=== PATIENT | female | born 1975 | race Caucasian/White ===

== ENCOUNTER 2020-03-14 05:40 | Day surgery (SDC) | payer OTHER, SELFPAY ==
[~2020-03-14] VITALS: Ht 160 cm; Wt 102.5 kg
[~2020-03-14 05:40] MED LIST: CEFAZOLIN SOD 2 GM in D5W 50 ML IV ONE
[2020-03-14] MEDS ORDERED: BUPIVACAINE /PF 0.25% 30 ML VIAL INJ ONE (08:20)
[2020-03-14] MEDS ORDERED: ROCURONIUM BROMIDE 10 MG/ML (ZEMURON) IV ONE (08:20)
[2020-03-14] MEDS ORDERED: NS IRRIG SOLN 1000 ML IR ONE (08:20)
[2020-03-14] MEDS ORDERED: SUCCINYLCHOLINE CHLORIDE 20 MG/ML(QUELICIN) IVP ONE (08:20)
[2020-03-14] MEDS ORDERED: fentaNYL CITRATE 250 MCG/5 ML AMP IV ONE (08:20)
[2020-03-14] MEDS ORDERED: SEVOFLURANE 15 MIN GAS INH ONE (08:20)
[2020-03-14] MEDS ORDERED: LR 1,000 ML IV.SOLN IV ONE (08:20)
[2020-03-14] MEDS ORDERED: NS 1000 ML IV.SOLN IV ONE (08:20)
[2020-03-14] MEDS ORDERED: ROPIVACAINE HCL/PF 0.2% EPIDURAL 200 ML PLAST..BAG EP ONE (08:20)
[2020-03-14] MEDS ORDERED: WATER FOR IRRIGATION,STERILE 1,000 ML IRRIG.SOLN IR ONE (08:20)
[2020-03-14] MEDS ORDERED: DEXTROSE 50% JECT 50 ML DISP.SYRIN IVP ONE (08:20)
[2020-03-14] MEDS ORDERED: ONDANSETRON HCL 4 MG/2 ML VIAL IVP ONE (08:20)
[2020-03-14] MEDS ORDERED: NEOSTIGMINE METHYLSULFATE 1 MG/ML, 10 ML VIAL IVP ONE (08:20)
[2020-03-14] MEDS ORDERED: GLYCOPYRROLATE 0.2 MG/ML VIAL IJ ONE (08:20)
[2020-03-14] MEDS ORDERED: PROPOFOL 200MG/ 20ML VIAL (DIPRIVAN) IV ONE (08:20)
[2020-03-14] MEDS ORDERED: FUROSEMIDE 40 MG/4 ML VIAL IVP ONE (08:20)
[2020-03-14] MEDS ORDERED: METOCLOPRAMIDE HCL 10 MG/2 ML VIAL IVP ONE (08:20)
[2020-03-14] MEDS ORDERED: HYDROmorphone 1 MG INJ. 1 MG/ML AMPUL IVP PRN (09:15)
[2020-03-14] MEDS ORDERED: ONDANSETRON HCL 4 MG/2 ML VIAL IVP PRN ×2 (09:15→10:30)
[2020-03-14] MEDS ORDERED: HYDROcodone/ACETAMIN 5-325 MG TAB (NORCO/ VICODIN) PO PRN (10:30)
[2020-03-14] MEDS ORDERED: OXYCODONE/ACETAMINOPHEN 5-325 TABLET PO PRN ×2 (10:30)
[2020-03-14] MEDS ORDERED: ONDANSETRON HCL 4 MG/2 ML VIAL ONE (13:36)
== END 2020-03-14 15:45 | disposition home or self-care (01) ==
LOC: SDS 05:40 → SMU 05:40 → SDS 15:45
PROVIDERS: ATTEND Specialist
DX: N93.8 Other specified abnormal uterine and vaginal bleeding (principal); D25.9 Leiomyoma of uterus, unspecified; N80.0 Endometriosis of uterus; N83.201 Unspecified ovarian cyst, right side; R10.2 Pelvic and perineal pain; Z79.899 Other long term (current) drug therapy; Z20.828 Contact with and (suspected) exposure to other viral communicable diseases
CPT/HCPCS: 58552; 64488; 88307; C1727; J0330; J0690; J1940; J2405; J2704; J2710; J2765; J3010; J3490 ×2; J7030; J7060; J7120; S2900; U0003; E0190